=== PATIENT | male | born 1945 | race Caucasian/White ===

== ENCOUNTER 2022-10-30 09:54 | Outpatient (RCR) | payer MEDICARE, OTHER | END 2022-11-29 | disposition home or self-care (01) | LOC: ONC 09:54 | PROVIDERS: ATTEND Radiology Radiation Oncology | DX: C61 Malignant neoplasm of prostate (principal); I10 Essential (primary) hypertension; E78.5 Hyperlipidemia, unspecified; Z98.890 Other specified postprocedural states; Z86.73 Personal history of transient ischemic attack (TIA), and cerebral infarction without residual deficits; Z80.42 Family history of malignant neoplasm of prostate | CPT/HCPCS: 99205 ==